=== PATIENT | female | born 1990 | race Caucasian/White ===

== ENCOUNTER 2021-07-04 17:25 | Emergency (ER) | payer OTHER ==
[2021-07-04] MEDS ORDERED: Albuterol Sulfate 2.5 mg/3 ml Neb ONE (18:15)
[2021-07-04] MEDS ORDERED: Dexamethasone 10 MG/ML VIAL ONE (18:15)
[2021-07-04] MEDS ORDERED: Ketorolac Tromethamine 30 MG/ML VIAL ONE (18:15)
[2021-07-04] MEDS ORDERED: Albuterol 200 PUFF (6.7GM INHALER) ONE (18:39)
[2021-07-04] MEDS ORDERED: Albuterol 200 PUFF (6.7GM INHALER) INH SCH (18:45)
[2021-07-04 19:02] LABS: Bilirubin Negative (Negative); Blood, Urine Small (Negative); Clarity Cloudy (Clear); Glucose, Urine (Dipstick) Negative (Negative); Ketone, Urine Trace mg/dL (Negative); Leukocyte Small (Negative); Nitrite Positive (Negative); Protein, Urine (Dipstick) Trace mg/dL (Neg-Trace); Specific Gravity, Urine 1.025 (1.005-1.030); Urobilinogen 0.2 mg/dL (Less than 2); pH, Urine 5.5 (5.0-9.0)
[2021-07-04 19:05] LABS: Bacteria/HPF 3+ HPF (None Seen)
[2021-07-04 19:06] LABS: Pregnancy Test - Urine (BHCG) Negative (Negative); Pregu Control Background? CLEAR/WHITE (CLR/WHITE); Pregu Control Bar Appear? YES (CONTROL BAR); Specific Gravity 1.025 (1.002-1.036)
[2021-07-04] MEDS ORDERED: Nitrofurantoin Monohyd/M-Cryst 100 MG CAP ONE (19:21)
== END 2021-07-04 19:24 | disposition home or self-care (01) ==
LOC: BURERS 17:25
DX: B34.9 Viral infection, unspecified (principal); N39.0 Urinary tract infection, site not specified; J45.909 Unspecified asthma, uncomplicated
CPT/HCPCS: 71045; 81003; 81015; 81025; 87077; 87086; 87186; 96372; J1100; J1885; J7611